=== PATIENT | male | born 1985 | race Caucasian/White ===

== ENCOUNTER 2016-10-06 13:58 | Emergency (ER) | payer OTHER ==
--- NOTE | 2016-10-06 14:06 | ER Document Report ---
ED Medical Screen (RME) - General Stated Complaint: HAND PAIN Mode of Arrival: Ambulatory Notes: pt presents c/o left hand pain after punching a wall. Pt with abrasion to left hand. Tetanus UTD TRAVEL OUTSIDE OF THE [place] IN LAST 30 DAYS: No - Related Data Allergies/Adverse Reactions: No Known Allergies Allergy (Verified 10/06/16 14:05) Physical Exam - Extremities General upper extremity: Tender - left hand tenderness/swelling
--- NOTE | 2016-10-06 14:43 | ER Document Report ---
ED General - General Chief Complaint: Hand Injury Stated Complaint: HAND PAIN Mode of Arrival: Ambulatory Information source: Patient Notes: 31 yr old male presents with left hand swelling after punching a wall yesterday while intoxicated. pt admtis to pain, denies any other concerns. tetanus up to date TRAVEL OUTSIDE OF THE [place] IN LAST 30 DAYS: No - HPI Onset: Yesterday Onset/Duration: Sudden Quality of pain: Achy Severity: Mild Pain Level: 1 Associated symptoms: Other Exacerbated by: Movement Relieved by: Denies Similar symptoms previously: No Recently seen / treated by doctor: No - Related Data Allergies/Adverse Reactions: No Known Allergies Allergy (Verified 10/06/16 14:05) Past Medical History - Social History Smoking Status: Current Some Day Smoker Cigarette use (# per day): No Chew tobacco use (# tins/day): Yes Smoking Education Provided: No Frequency of alcohol use: Social Drug Abuse: None Family History: Reviewed & Not Pertinent Patient has suicidal ideation: No Patient has homicidal ideation: No Review of Systems - Review of Systems Notes: REVIEW OF SYSTEMS: CONSTITUTIONAL : Denies fever, chills, or sweats. Denies recent illness. EENT: Denies eye, ear, throat, or mouth pain or symptoms. Denies nasal or sinus congestion or discharge. Denies throat, tongue, or mouth swelling or difficulty swallowing. CARDIOVASCULAR: Denies chest pain. Denies palpitations or racing or irregular heart beat. Denies ankle edema. RESPIRATORY: Denies cough, cold, or chest congestion. Denies shortness of breath, difficulty breathing, or wheezing. GASTROINTESTINAL: Denies abdominal pain or distention. Denies nausea, vomiting , or diarrhea. Denies blood in vomitus, stools, or per rectum. Denies black, tarry stools. Denies constipation. GENITOURINARY: Denies difficulty urinating, painful urination, burning, frequency, blood in urine, or discharge. MUSCULOSKELETAL: left hand pain swelling SKIN: Denies rash, lesions or sores. HEMATOLOGIC : Denies easy bruising or bleeding. LYMPHATIC: Denies swollen, enlarged glands. NEUROLOGICAL: Denies confusion or altered mental status. Denies passing out or loss of consciousness. Denies dizziness or lightheadedness. Denies headache. Denies weakness or paralysis or loss of use of either side. Denies problems with gait or speech. Denies sensory loss, numbness, or tingling. Denies seizures. PSYCHIATRIC: Denies anxiety or stress. Denies depression, suicidal ideation, or homicidal ideation. ALL OTHER SYSTEMS REVIEWED AND NEGATIVE. Dictation was performed using [employer] voice recognition software PHYSICAL EXAMINATION: GENERAL: Well-appearing, well-nourished and in no acute distress. HEAD: Atraumatic, normocephalic. EYES: Pupils equal round and reactive to light, extraocular movements intact, sclera anicteric, conjunctiva are normal. ENT: Nares patent, oropharynx clear without exudates. Moist mucous membranes. NECK: Normal range of motion, supple without lymphadenopathy LUNGS: Breath sounds clear to auscultation bilaterally and equal. No wheezes rales or rhonchi. HEART: Regular rate and rhythm without murmurs ABDOMEN: Soft, nontender, nondistended abdomen. No guarding, no rebound. No masses appreciated. Musculoskeletal: left hand swelling, tender on palpation of the 4th and 5th base NEUROLOGICAL: Cranial nerves grossly intact. Normal speech, normal gait. Normal sensory, motor exams PSYCH: Normal mood, normal affect. SKIN: abrasions ot the 4th and 5th digits Physical Exam - Vital signs Vitals: Temp Pulse Resp BP Pulse Ox 98.3 F 103 H 17 119/75 96 10/06/16 14:06 10/06/16 14:06 10/06/16 14:06 10/06/16 14:06 10/06/16 14:06 Course - Re-evaluation Re-evalutation: 10/06/16 14:47 X-ray pending tetanus is up-to-date, I have low suspicion for any life- threatening issues otherwise 10/06/16 15:08 Given the swelling and negative x-ray and believe this is secondary to contusion however I will place patient in a cock-up splint with follow-up with orthopedics in one week for reevaluation or to return immediately if there is any other concerns patient has been instructed on wound care as well After performing a Medical Screening Examination, I estimate there is LOW risk for INTRACRANIAL HEMORRHAGE, UNSTABLE SPINE FRACTURE, CENTRAL CORD SYNDROME, CAUDA EQUINA, THORACIC AORTIC DISSECTION, PNEUMOTHORAX, PERFORATED BOWEL, RUPTURED ABDOMINAL AORTIC ANEURYSM, ACUTE TENDON RUPTURE, COMPARTMENT SYNDROME, or OPEN FRACTURE, thus I consider the discharge disposition reasonable. Also, there is no evidence or peritonitis, sepsis, or toxicity. The patient and I have discussed the diagnosis and risks, and we agree with discharging home to follow-up with their primary doctor with the understanding that symptoms and presentations can change. We also discussed returning to the Emergency Department immediately if new or worsening symptoms occur. We have discussed the symptoms which are most concerning (e.g., bloody stool, fever, changing or worsening pain, vomiting) that necessitate immediate return. - Vital Signs Vital signs: Temp Pulse Resp BP Pulse Ox 98.3 F 103 H 17 119/75 96 10/06/16 14:06 10/06/16 14:06 10/06/16 14:06 10/06/16 14:06 10/06/16 14:06 Procedures - Immobilization Left Hand Time completed: 15:09 Pre-Proc Neuro Vasc Exam: Normal Immobilizer type: Cock-up Performed by: PCT Post-Proc Neuro Vasc Exam: Normal Alignment checked and good: Yes Discharge - Discharge Clinical Impression: Abrasion Hand injury Qualifiers: Encounter type: initial encounter Laterality: left Qualified Code(s): S69.92XA - Unspecified injury of left wrist, hand and finger(s), initial encounter Condition: Stable Disposition: HOME, SELF-CARE Instructions: Fractured Fifth Metacarpal ([facility]) Prescriptions: Hydrocodone/Acetaminophen [Gregory 5-325 mg Tablet] 1 tab PO Q6 #10 tablet Referrals: DAMON HASTINGS MD [ACTIVE STAFF] - Follow up tomorrow
[2016-10-06 15:27] VITALS: BP 122/79
== END 2016-10-06 15:25 | disposition home or self-care (01) ==
LOC: ER 13:58
DX: S60.512A Abrasion of left hand, initial encounter (principal); S69.92XA Unspecified injury of left wrist, hand and finger(s), initial encounter; M79.89 Other specified soft tissue disorders; W22.01XA Walked into wall, initial encounter; F17.210 Nicotine dependence, cigarettes, uncomplicated
CPT/HCPCS: 99283

== ENCOUNTER 2020-07-24 02:41 | Emergency (ER) | payer OTHER ==
[2020-07-24 02:58] VITALS: BP 109/75
--- NOTE | 2020-07-24 06:32 | ER Document Report ---
HPI - HPI Time Seen by Provider: 07/24/20 06:09 Pain Level: 4 Notes: 35-year-old male presenting to the emergency department chief complaint of laceration. Patient reports he was running around a backyard playing football when the laceration occurred. He states that occurred just prior to arrival. He is not sure if his tetanus is up-to-date. - ROS Systems Reviewed and Negative: Yes All other systems reviewed and negative - CONSTITUTIONAL Constitutional: DENIES: Fever, Chills - EENT EENT: DENIES: Sore Throat, Ear Pain, Eye problems - NEURO Neurology: DENIES: Headache, Weakness, Vision blurred, Dizzinesss / Vertigo - CARDIOVASCULAR Cardiovascular: DENIES: Chest pain - RESPIRATORY Respiratory: DENIES: Trouble Breathing, Coughing - GASTROINTESTINAL Gastrointestinal: DENIES: Abdominal Pain, Black / Bloody Stools - URINARY Urinary: DENIES: Dysuria, Urgency, Frequency - MUSCULOSKELETAL Musculoskeletal: REPORTS: Extremity pain - RIGHT FOOT Past Medical History - General Information source: Patient - Social History Smoking Status: Current Every Day Smoker Family History: Reviewed & Not Pertinent Psychiatric Medical History: Reports: Hx Depression Surgical Hx: Negative - Immunizations Hx Diphtheria, Pertussis, Tetanus Vaccination: Yes Vertical Provider Document - CONSTITUTIONAL Notes: PHYSICAL EXAMINATION: GENERAL: Well-appearing, well-nourished and in no acute distress. HEAD: Atraumatic, normocephalic. EYES: Pupils equal round extraocular movements intact, conjunctiva are normal. ENT: Nares patent NECK: Normal range of motion LUNGS: No respiratory distress Musculoskeletal: Normal range of motion NEUROLOGICAL: Normal speech, normal gait. PSYCH: Normal mood, normal affect. SKIN: 4 cm laceration noted to right medial ankle. No active bleeding noted. - INFECTION CONTROL TRAVEL OUTSIDE OF THE [place] IN LAST 30 DAYS: No Course - Re-evaluation Re-evalutation: Laceration repaired under sterile technique, patient tolerated well, dressing applied. See procedure note. - Vital Signs Vital signs: Temp Pulse Resp BP Pulse Ox 98.0 F 113 H 18 109/75 97 07/24/20 02:56 07/24/20 02:56 07/24/20 02:56 07/24/20 02:56 07/24/20 02:56 Procedures - Laceration/Wound Repair Right medial ankle Wound length (cm): 4 Wound's Depth, Shape: Superficial Laceration pre-procedure: Sterile PPE donned Anesthetic type: 1% Lidocaine Wound Debrided: Minimal Wound Repaired With: Sutures Suture Size/Type: 4:0 Number of Sutures: 7 Discharge - Discharge Clinical Impression: Laceration Condition: Stable Disposition: HOME, SELF-CARE Additional Instructions: Laceration Care Your laceration has been sutured to keep the skin edges aligned during healing. The time of suture removal depends on the nature and location of your cut. Please follow the care instructions the doctor has outlined for you and return for further care, according to the schedule you've been given. Keep the wound and dressing clean. Unless you were told otherwise, you may shower daily, blotting the wound dry with a clean, unused towel. At other times, If the dressing gets wet or blood soaked, remove it and blot the wound dry, then reapply a new dressing. Unless you were instructed otherwise, dressings should be changed at least daily. If any signs of infection occur (swelling, redness, increasing tenderness, red streaks, tender lumps in the armpit or groin above the laceration, or fever), see the doctor immediately. Please return to the emergency department or your primary care provider in 10 days for suture removal. Please return earlier if you develop any signs of infection such as increased redness, swelling, foul-smelling drainage or fever. Prescriptions: Cephalexin [Keflex] 500 mg PO BID #14 capsule Referrals: [facility] [Primary Care Provider] - Follow up as needed
[2020-07-24] MEDS ORDERED: LIDOCAINE 1% INJ-PF (10 MG/ML) 30 ML SDV ONE (07:21)
[2020-07-24] MEDS ORDERED: LIDOCAINE 1% INJ-PF (10 MG/ML) 30 ML SDV INJ ONE (07:33)
== END 2020-07-24 09:02 | disposition home or self-care (01) ==
LOC: ER 02:41
PROC: 0HQKXZZ Repair Right Lower Leg Skin, External Approach (ICD-10-PCS; principal; 2020-07-24)
DX: S91.011A Laceration without foreign body, right ankle, initial encounter (principal); X58.XXXA Exposure to other specified factors, initial encounter; Y93.61 Activity, american tackle football
CPT/HCPCS: 99283; 12002; J3490